=== PATIENT | female | born 1965 | race Caucasian/White ===

== ENCOUNTER 2019-10-25 07:52 | Outpatient (CLI) | payer MEDICARE, SELFPAY ==
--- NOTE | 2019-10-25 08:37 | CT_ITS ---
WS: [id number] CT LUMBAR SPINE TECHNIQUE: Noncontrast CT of the lumbar spine with coronal and sagittal reformatted images. CLINICAL INFORMATION: POST-OPERATIVE STATE COMPARISON: July 12, 2019 DLP: 1289.[address] scans at [facility] use at least one of these dose optimization techniques: automat ed exposure control; mA and/or kV adjustment per patient size (includes targeted exams where dose is matched to clinical indication); or iterative reconstruction. FINDINGS: Mild lumbar curve convex left. Stable grade 1 anterolisthesis L4 on L5 appears unchanged. Postoperati ve changes pedicle screw fixation L4-5 with interconnecting rods. Dorsal lateral bony fusion. L1-L2: Normal. L2-L3: Mild left eccentric osteophytic ridging. Spinal canal and foramen are patent. Mild facet arthr opathy. L3-L4: Mild annular bulging. Mild facet arthropathy. Mild central canal stenosis. Mild left and no si gnificant right foraminal narrowing. L4-L5: Grade 1 anterolisthesis L4 on L5. Pedicle screw fixation. Spinal canal and foramen are patent. Laminectomy defects. L5-S1: Pedicle screw fixation. Mild annular bulging. Moderate facet arthropathy. Mild right and no si gnificant left foraminal narrowing. Spinal canal is patent. Visualized pelvic bony structures: Normal. Paravertebral soft tissues: Normal. CT/CT lumbar spine wo con* [id number] IMPRESSION: 1. Stable grade 1 anterolisthesis L4 on L5. 2. Pedicle screw fixation L4-5 with interconnecting rods and dorsal lateral ally ny fusion. No evidence of hardware loosening. 3. Associated laminectomy defects L4-L5 and L5-S1. 4. Mild central canal stenosis L3-4 with disc bulging and mild facet arthropat hy. 5. Otherwise no significant interval changes.
== END 2019-10-25 07:53 | disposition home or self-care (01) ==
LOC: RADWPI 07:59
PROVIDERS: Family Provider Nurse Practitioner; PCP Nurse Practitioner; Visit Provider Specialist
DX: Z98.890 Other specified postprocedural states (principal); M48.061 Spinal stenosis, lumbar region without neurogenic claudication; M96.1 Postlaminectomy syndrome, not elsewhere classified
CPT/HCPCS: 72131

== ENCOUNTER 2019-12-29 08:23 | Outpatient (CLI) | payer MEDICARE, SELFPAY ==
--- NOTE | 2019-12-29 08:34 | XR_ITS ---
WS: [id number] HIPS BILATERAL TECHNIQUE: 5 views bilateral hips Including pelvis CLINICAL INFORMATION: BILATERAL HIP PAIN COMPARISON: None. FINDINGS: Mild degenerative arthritis both hips with joint space narrowing. No acute fractures. Normal pubic ra mi. XR/XR hip BI 3-4V wo/w pel [id number] IMPRESSION: Mild degenerative arthritis both hips. No acute fractures.
== END 2019-12-29 08:24 | disposition home or self-care (01) ==
LOC: RADWPI 08:28
PROVIDERS: PCP Nurse Practitioner; Visit Provider Nurse Practitioner
DX: M16.0 Bilateral primary osteoarthritis of hip (principal)
CPT/HCPCS: 73522

== ENCOUNTER 2020-01-30 13:50 | Outpatient (CLI) | payer MEDICARE, SELFPAY ==
--- NOTE | 2020-01-30 14:15 | CT_ITS ---
WS: [id number] CT LUMBAR SPINE TECHNIQUE: Noncontrast CT of the lumbar spine with coronal and sagittal reformatted images. CLINICAL INFORMATION: s/p lumbar spinal fusion COMPARISON: October 25, 2019 DLP: 1934.[address] scans at [facility] use at least one of these dose optimization techniques: automat ed exposure control; mA and/or kV adjustment per patient size (includes targeted exams where dose is matched to clinical indication); or iterative reconstruction. FINDINGS: Mild lumbar curve convex left. Stable grade 1 anterolisthesis L4 on L5 appears unchanged. P ostoperative changes pedicle screw fixation L4-5 with interconnecting rods. Dorsal lateral bony fusio n. Hardware appears unchanged since October 25, 2019. Dorsal lateral bony fusion material is stable. L1-L2: Normal. L2-L3: Mild left eccentric osteophytic ridging. Spinal canal and foramen are patent. Mild facet arthr opathy. L3-L4: Mild annular bulging. Mild facet arthropathy. Mild central canal stenosis. Mild left and no si gnificant right foraminal narrowing. L4-L5: Grade 1 anterolisthesis L4 on L5. Pedicle screw fixation. Spinal canal and foramen are patent. Laminectomy defects. L5-S1: Pedicle screw fixation. Mild annular bulging. Advanced facet arthropathy. Mild right and no si gnificant left foraminal narrowing. Spinal canal is patent. Visualized pelvic bony structures: Normal. Paravertebral soft tissues: Normal. CT/CT lumbar spine wo con* [id number] IMPRESSION: 1. Stable grade 1 anterolisthesis L4 on L5. 2. Pedicle screw fixation L4-5 with interconnecting rods and dorsal lateral ally ny fusion. No evidence of hardware loosening. Associated laminectomy defects L4 -L5 and L5-S1. 3. Mild central canal stenosis L3-4 due to mild disc bulging with facet arthr opathy. 4. Advanced facet arthropathy L5-S1.
== END 2020-01-30 13:51 | disposition home or self-care (01) ==
LOC: RADWPI 13:51
PROVIDERS: PCP Nurse Practitioner; Visit Provider Specialist
DX: Z98.1 Arthrodesis status (principal); M48.061 Spinal stenosis, lumbar region without neurogenic claudication; M47.817 Spondylosis without myelopathy or radiculopathy, lumbosacral region
CPT/HCPCS: 72131

== ENCOUNTER 2020-03-14 08:43 | Outpatient (CLI) | payer MEDICARE, SELFPAY ==
--- NOTE | 2020-03-14 09:00 | IR_ITS ---
WS: [id number] LUMBAR MYELOGRAM HISTORY: lumbar pain COMPARISON: 11/30/2018 FLUOROSCOPY TIME: 1.1 minutes. Procedure, risks and complications were explained to the patient. Risks including bleeding, infection , headaches, allergic reaction and seizures. Consent has been obtained. With the patient in prone position the skin over the lumbar region is cleansed with ChloraPrep and an esthetized with lidocaine. 22-gauge spinal needle is inserted into the thecal sac at the appropriate level determined by fluoroscopy. Omnipaque 240; 13 ml is injected slowly under fluoroscopy with no co mplications. Needle bevel is perpendicular to the longitudinal fibers of the dura. Stylet is reinsert ed prior to removal of the needle. Patient tolerated the procedure well. Patient will proceed to CT f or further evaluation. Uncomplicated injection into the thecal sac. Posterior lumbar fusion hardware noted at L4-5. Large l aminectomy defect posteriorly at L4 and L5. No hardware fracture. No lucency or change in alignment. Grade 1 anterolisthesis of L4. 6.7 mm anterolisthesis on neutral imaging with no appreciable change d uring flexion or extension. IR/IR myelogram sp lumbar [id number] IMPRESSION: 1. Stable posterior lumbar fusion at L4-5. 2. Stable grade 1 anterolisthesis of L4. 3. No acute fractures. 4. CT myelogram lumbar spine to follow.
[2020-03-14] MEDS: iohexol 240 mg/mL 50 mL Btl INTRATHECA (09:36)
--- NOTE | 2020-03-14 11:30 | CT_ITS ---
WS: [id number] CT MYELOGRAM LUMBAR SPINE HISTORY: lumbar pain, prior fusion. TECHNIQUE: Contiguous 2.5 mm axial imaging performed from T12 through the mid sacral level. Bone and soft tissue windows reviewed. Sagittal and coronal reformats are submitted and reviewed. DLP: 2026.[address] scans at [facility] use at least one of these dose optimization techniques: automat ed exposure control; mA and/or kV adjustment per patient size (includes targeted exams where dose is matched to clinical indication); or iterative reconstruction. COMPARISON: 01/30/2020 and 10/25/2019 Prior posterior lumbar fusion at L4-5. Pedicle screws and vertical rods are intact. No fractures. The re is very minimal lucency around the RIGHT L5 pedicle screw which is similar to prior study. L4 ante rolisthesis by 6.5 mm is similar. Bilateral pars defects at L4. No acute fractures. Severe facet join t arthritis at L4-5 and L5-S1. Large posterior laminectomy defect at the L4 and L5 levels. Osteophyte s and bony fragments associated with the facet joint arthritis. No acute fracture line. L1-L2: Normal. L2-L3: Mild annular disc bulging with no stenosis. L3-L4: Mild annular disc bulging with ligamentum flavum hypertrophy and facet arthritis. Mild narrowi ng of the thecal sac. Moderate degenerative changes at the facet joints. L4-L5: Slight unroofing of the disc. No significant stenosis. L5-S1: Mild annular disc bulging without significant stenosis. Paraspinal soft tissues are normal. Mild increased soft tissue in the RIGHT adnexa may be related to a fibroid as it is inseparable from the uterus. CT/CT lumbar spine w con [id number] IMPRESSION: 1. Stable posterior lumbar fusion at L4-5 with large laminectomy defects. 2. No acute fracture or complications from the recent fall. 3. Mild central stenosis at L3-4. 4. Stable grade 1 anterolisthesis of L4.
== END 2020-03-14 08:44 | disposition home or self-care (01) ==
LOC: RADWPI 08:47
PROVIDERS: Family Provider Nurse Practitioner; PCP Nurse Practitioner; Visit Provider Specialist
DX: M54.5 Low back pain; Z98.1 Arthrodesis status; M43.26 Fusion of spine, lumbar region; M48.061 Spinal stenosis, lumbar region without neurogenic claudication
CPT/HCPCS: 62304; 72120; 72132; Q9966

== ENCOUNTER → 2020-04-12 15:11 | Outpatient (BNVA) | payer MEDICARE, SELFPAY | PROVIDERS: Family Provider Nurse Practitioner; PCP Nurse Practitioner; Visit Provider Licensed Practical Nurse | DX: M43.16 Spondylolisthesis, lumbar region (principal); Z98.1 Arthrodesis status | CPT/HCPCS: 99213 ==

== ENCOUNTER 2020-04-16 08:40 | Outpatient (CLI) | payer MEDICARE, SELFPAY ==
--- NOTE | 2020-04-16 08:46 | XR_ITS ---
WS: [id number] RIBS RIGHT WITH CHEST TECHNIQUE: 3 views of the right ribs with PA chest CLINICAL INFORMATION: PLEURODYNIA, RIB PAIN RIGHT SIDE, UNSPECIFIED FALL, INITIAL COMPARISON: None. FINDINGS: Right ribs are normal in appearance. No visualized right rib fractures. No pneumothorax. Cardiomegaly . Lungs are well aerated. Mild chronic emphysematous changes. Hypertrophic changes thoracic spine. Po stoperative changes partially visualized in the lumbar spine. XR/XR ribs RT mn 3V w CXR1V [id number] IMPRESSION: Normal right ribs.
== END 2020-04-16 08:41 | disposition home or self-care (01) ==
LOC: RADWPI 08:43
PROVIDERS: Family Provider Nurse Practitioner; PCP Nurse Practitioner; Visit Provider Nurse Practitioner Family
DX: R07.81 Pleurodynia (principal); W19.XXXA Unspecified fall, initial encounter
CPT/HCPCS: 71101

== ENCOUNTER → 2020-05-04 09:16 | Outpatient (BNVA) | payer MEDICARE, SELFPAY | PROVIDERS: Family Provider Nurse Practitioner; PCP Nurse Practitioner; Visit Provider Specialist | DX: M43.16 Spondylolisthesis, lumbar region (principal); G62.9 Polyneuropathy, unspecified | CPT/HCPCS: 95885; 95909; 99214 ==

== ENCOUNTER → 2020-05-14 08:05 | Outpatient (BNVA) | payer MEDICARE, SELFPAY | PROVIDERS: Family Provider Nurse Practitioner; PCP Nurse Practitioner; Visit Provider Licensed Practical Nurse | DX: M43.16 Spondylolisthesis, lumbar region (principal); Z98.1 Arthrodesis status; G62.9 Polyneuropathy, unspecified | CPT/HCPCS: 99213 ==

== ENCOUNTER 2020-05-21 07:58 | Outpatient (CLI) | payer MEDICARE, SELFPAY ==
--- NOTE | 2020-05-21 08:15 | CT_ITS ---
WS: [id number] CT of the lumbar spine, additional two-dimensional coronal and sagittal imaging was obtained. 05/21/20 Clinical Data: Falls. S/P fusion/fixation Comparison: CT lumbar spine, 03/14/2020. DLP: 2004.[address] scans at [facility] use at least one of these dose optimization techniques: automat ed exposure control; mA and/or kV adjustment per patient size (includes targeted exams where dose is matched to clinical indication); or iterative reconstruction. Findings: There is no change in the posterior lumbar fusion at L4-L5. The connecting rods and pedicle screws are intact. The laminectomy at L4 and L5 has not changed. Facet joint arthritis is present at L3-4, L4-5 and L5-S1 unchanged. No compression fractures are seen. The transverse processes are inta ct. The bilateral pars interarticularis defects at L5-S1 remain unchanged. There is a 0.6 cm subluxat ion of L4 on L5 unchanged. T12-L1: No canal stenosis, disc bulge or foraminal narrowing is seen. L1-L2: No canal stenosis, disc bulge or foraminal narrowing is seen. L2-L3: No canal stenosis, disc bulge or foraminal narrowing is seen. L3-L4: There is a broad-based central disc bulge along with facet joint arthritis causing canal and f oraminal stenosis unchanged. L4-L5: There is disc bulging and facet joint arthritis but no canal stenosis. L5-S1: There is minimal disc bulging and facet joint arthritis without canal stenosis. CT/CT lumbar spine wo con* [id number] Impression: 1. L4-L5 laminectomy with posterior lumbar fusion unchanged. 2. No recent fractures. 3. Foraminal and canal stenosis at L3-L4 unchanged. 4. Grade 1 anterolisthesis of L4 and L5 unchanged.
--- NOTE | 2020-05-21 08:30 | XR_ITS ---
WS: [id number] Lumbar spine with flexion, extension, and neutral lateral, 05/21/2020 Clinical Data: Falls. S/P Fusion/fixation Comparison: None. Findings: No compression fractures are seen. Degenerative disc narrowing at L5-S1 is present.. No limitation of motion or change in subluxation is seen on flexion or extension. There is minimal subluxation of 0.6 cm of L4 and L5. There is a posterior lumbar fusion of L4 and L5 with pedicle screws and connecting rods. XR/XR lumbar spine f/e only [id number] Impression: 1. Subluxation of L4 on L5 of 0.6 cm unchanged on flexion or extension. 2. No limitation of motion on flexion or extension. 3. Degenerative disc narrowing at L5-S1.
== END 2020-05-21 07:59 | disposition home or self-care (01) ==
LOC: RADWPI 08:05
PROVIDERS: Family Provider Nurse Practitioner; PCP Nurse Practitioner; Visit Provider Licensed Practical Nurse
DX: Z98.1 Arthrodesis status (principal); M48.061 Spinal stenosis, lumbar region without neurogenic claudication
CPT/HCPCS: 72120; 72131

== ENCOUNTER → 2020-05-28 09:00 | Outpatient (BNVA) | payer MEDICARE, SELFPAY | PROVIDERS: Family Provider Nurse Practitioner; PCP Nurse Practitioner; Visit Provider Licensed Practical Nurse | DX: G62.9 Polyneuropathy, unspecified (principal); M43.16 Spondylolisthesis, lumbar region; Z98.1 Arthrodesis status | CPT/HCPCS: 99213 ==

== ENCOUNTER 2020-06-11 09:13 | Outpatient (CLI) | payer MEDICARE, SELFPAY ==
--- NOTE | 2020-06-11 09:18 | MM_ITS ---
WS: [id number] BILATERAL DIGITAL SCREENING MAMMOGRAPHY WITH CAD CLINICAL INFORMATION: SCREENING HISTORY: Screening mammogram. No current complaints. COMPARISON: TECHNIQUE: Bilateral CC and MLO views. FINDINGS: Scattered fibroglandular densities bilaterally. No suspicious focal mass, asymmetry, calcifications, or architectural distortion. No evidence of malignancy. MM/[place] [id number] IMPRESSION: BI-RADS: 1-Negative FOLLOW UP: 1 Year Follow-up Recommend return to annual screening mammography.
== END 2020-06-11 09:14 | disposition home or self-care (01) ==
LOC: RADSHAW 09:15
PROVIDERS: PCP Nurse Practitioner; Visit Provider Nurse Practitioner
DX: Z12.31 Encounter for screening mammogram for malignant neoplasm of breast (principal)
CPT/HCPCS: 77067

== ENCOUNTER → 2020-07-23 08:23 | Outpatient (BNVA) | payer MEDICARE, SELFPAY | PROVIDERS: PCP Nurse Practitioner; Visit Provider Specialist | DX: R20.0 Anesthesia of skin (principal); G62.9 Polyneuropathy, unspecified; Z98.1 Arthrodesis status; M47.817 Spondylosis without myelopathy or radiculopathy, lumbosacral region | CPT/HCPCS: 95861 ==

== ENCOUNTER 2020-08-03 09:27 | Outpatient (CLI) | payer MEDICARE, SELFPAY ==
[2020-08-03 11:16] LABS: 25 Hydroxy Vitamin D 15 ng/mL (30-100); C Reactive Protein 9.8 mg/L (0.0-4.9); Thyroid Stimulating Hormone 1.26 uIU/mL (0.27-4.20); Vitamin B12 446 pg/mL (232-1245)
[2020-08-03 11:22] LABS: Erythrocyte Sedimentation Rate 25 mm/hr (0-15)
[2020-08-03 11:48] LABS: Folate Level 13.1 ng/mL (4.8-37.3)
[2020-08-07 21:08] LABS: Methylmalonic Acid 209 nmol/L (87-318)
== END 2020-08-03 09:28 | disposition home or self-care (01) ==
PROVIDERS: PCP Nurse Practitioner; Visit Provider Licensed Practical Nurse
DX: G62.9 Polyneuropathy, unspecified (principal); Z79.899 Other long term (current) drug therapy
CPT/HCPCS: 36415; 82306; 82607; 82746; 83921; 84260; 84443; 85651; 86140; 86431

== ENCOUNTER 2021-08-20 09:36 | Outpatient (CLI) | payer MEDICARE, SELFPAY ==
--- NOTE | 2021-08-20 10:02 | MM_ITS ---
WS: [id number] BILATERAL DIGITAL SCREENING MAMMOGRAPHY WITH CAD CLINICAL INFORMATION: SCREENING HISTORY: Screening mammogram. No current complaints. COMPARISON: June 11, 2020 TECHNIQUE: Bilateral CC and MLO views. FINDINGS: Scattered fibroglandular densities bilaterally. No suspicious focal mass, asymmetry, calcifications, or architectural distortion. No evidence of malignancy. MM/[place] [id number] IMPRESSION: BI-RADS: 1-Negative FOLLOW UP: 1 Year Follow-up Recommend return to annual screening mammography.
== END 2021-08-20 09:37 | disposition home or self-care (01) ==
LOC: RADSHAW 09:40
PROVIDERS: PCP Nurse Practitioner; Visit Provider Nurse Practitioner
DX: Z12.31 Encounter for screening mammogram for malignant neoplasm of breast (principal)
CPT/HCPCS: 77067

== ENCOUNTER → 2021-11-26 11:00 | Outpatient (BNVA) | payer MEDICARE, SELFPAY | PROVIDERS: PCP Nurse Practitioner; Visit Provider Family Medicine Adult Medicine | DX: S62.322A Displaced fracture of shaft of third metacarpal bone, right hand, initial encounter for closed fracture (principal); S62.324A Displaced fracture of shaft of fourth metacarpal bone, right hand, initial encounter for closed fracture; W19.XXXA Unspecified fall, initial encounter | CPT/HCPCS: 73130 ==

== ENCOUNTER 2021-12-23 10:34 | Outpatient (CLI) | payer MEDICARE, SELFPAY ==
--- NOTE | 2021-12-23 10:45 | XR_ITS ---
WS: [id number] XR hand RT min 3V* [id number] REASON FOR EXAM: DISPLACED FX OF NECK OF THIRD METACARPAL BONE R HAND FINDINGS: Compared to previous examination of 11/26/2021, some overriding of the fracture fragments with mild do rsomedial angulation have occurred at the mid transverse fracture site of the third metacarpal. Callus formation is identified. Osteoarthritis. No other interval change. XR/XR hand RT min 3V* [id number] IMPRESSION: Change in fracture fragment alignment as above.
== END 2021-12-23 10:35 | disposition home or self-care (01) ==
LOC: RAD 10:38
PROVIDERS: PCP Nurse Practitioner; Visit Provider Nurse Practitioner
DX: S62.332A Displaced fracture of neck of third metacarpal bone, right hand, initial encounter for closed fracture (principal); X58.XXXA Exposure to other specified factors, initial encounter
CPT/HCPCS: 73130

== ENCOUNTER 2021-12-27 06:00 | Outpatient (CLI) | payer MEDICARE, SELFPAY | END 2021-12-27 06:01 | disposition home or self-care (01) | LOC: SPT 12-31 14:33 | PROVIDERS: PCP Nurse Practitioner; Referring Provider Nurse Practitioner Family; Visit Provider Nurse Practitioner Family | DX: Z46.89 Encounter for fitting and adjustment of other specified devices (principal); S62.328D Displaced fracture of shaft of other metacarpal bone, subsequent encounter for fracture with routine healing; X58.XXXD Exposure to other specified factors, subsequent encounter | CPT/HCPCS: 97760; L3984 ==

== ENCOUNTER → 2021-12-27 09:15 | Outpatient (BNVA) | payer MEDICARE, SELFPAY | PROVIDERS: PCP Nurse Practitioner; Visit Provider Nurse Practitioner Family | DX: S62.352A Nondisplaced fracture of shaft of third metacarpal bone, right hand, initial encounter for closed fracture (principal); X58.XXXA Exposure to other specified factors, initial encounter | CPT/HCPCS: 99203; 99204 ==

== ENCOUNTER 2022-09-03 11:00 | Outpatient (CLI) | payer MEDICARE, SELFPAY ==
--- NOTE | 2022-09-03 11:29 | MM_ITS ---
WS: [id number] BILATERAL SCREENING DIGITAL TOMOSYNTHESIS MAMMOGRAM WITH CAD HISTORY: SCREENING COMPARISON: 08/20/2021 and 06/11/2020 Bilateral CC and MLO views with tomosynthesis and synthetic mammography submitted. Computer aided det ection analyzed. Breast composition: The breasts are almost entirely fatty. No suspicious masses, microcalcifications or architectural distortion. MM/[place] [id number] IMPRESSION: BI-RADS: 1-Negative FOLLOW UP: 1 Year Follow-up
== END 2022-09-03 11:01 | disposition home or self-care (01) ==
LOC: RAD 11:02
PROVIDERS: PCP Nurse Practitioner Family; Visit Provider Nurse Practitioner Family
DX: Z12.31 Encounter for screening mammogram for malignant neoplasm of breast (principal)
CPT/HCPCS: 77063; 77067

== ENCOUNTER 2023-09-11 10:50 | Outpatient (CLI) | payer MEDICARE, SELFPAY ==
--- NOTE | 2023-09-11 10:55 | MM_ITS ---
WS: [id number] SCREENING DIGITAL TOMOSYNTHESIS MAMMOGRAM WITH CAD HISTORY: SCREENING COMPARISON: 09/03/2022 and 08/20/2021 Bilateral CC and MLO with tomosynthesis views submitted. Synthetic mammography reviewed. Computer aid ed detection analyzed. Breast composition: The breasts are almost entirely fatty. No suspicious masses, microcalcifications or architectural distortion. IMPRESSION: MM/[place] [id number] BI-RADS: 1-Negative FOLLOW UP: 1 Year Follow-up
== END 2023-09-11 10:51 | disposition home or self-care (01) ==
PROVIDERS: PCP Nurse Practitioner Family; Visit Provider Nurse Practitioner Family
DX: Z12.31 Encounter for screening mammogram for malignant neoplasm of breast (principal)
CPT/HCPCS: 77063; 77067

== ENCOUNTER 2024-10-12 09:41 | Outpatient (CLI) | payer MEDICARE, SELFPAY ==
--- NOTE | 2024-10-12 09:44 | MM_ITS ---
WS: [id number] BILATERAL SCREENING DIGITAL TOMOSYNTHESIS MAMMOGRAM WITH CAD HISTORY: SCREENING COMPARISON: 09/11/2023, 09/03/2022 Bilateral CC and MLO views with tomosynthesis and synthetic mammography submitted. Computer aided detection analyzed. Breast composition: The breasts are almost entirely fatty. No suspicious masses, microcalcifications or architectural distortion. MM/MM scr BI tomosynthesis [id number] IMPRESSION: BI-RADS: 1 - Negative. FOLLOW UP: 1 Year Follow-up
== END 2024-10-12 09:42 | disposition home or self-care (01) ==
LOC: RAD 09:42
PROVIDERS: PCP Nurse Practitioner Family; Visit Provider Nurse Practitioner Family
DX: Z12.31 Encounter for screening mammogram for malignant neoplasm of breast (principal); R92.313 Mammographic fatty tissue density, bilateral breasts
CPT/HCPCS: 77063; 77067